=== PATIENT | female | born 1990 | race American Indian/Alaskan Native ===

== ENCOUNTER 2020-06-01 08:17 | Outpatient (CLI) | payer OTHER | END 2020-06-01 09:08 | disposition home or self-care (01) | LOC: NST 08:17 | PROVIDERS: ATTEND Obstetrics & Gynecology | DX: Z34.83 Encounter for supervision of other normal pregnancy, third trimester (principal) ==

== ENCOUNTER 2020-07-12 07:46 | Outpatient (CLI) | payer OTHER | END 2020-07-12 08:28 | disposition home or self-care (01) | LOC: NST 07:46 | PROVIDERS: ATTEND Obstetrics & Gynecology | DX: Z34.83 Encounter for supervision of other normal pregnancy, third trimester (principal) ==

== ENCOUNTER 2020-07-20 14:45 | Inpatient (IN) | payer OTHER ==
[~2020-07-20] VITALS: Ht 152.4 cm; Wt 58.5 kg
[2020-08-03] MEDS ORDERED: PRENATAL TABLE1 EAC1 PO (07:44)
== END 2020-08-05 16:23 | disposition home or self-care (01) | DRG 788 ==
LOC: LDR 08-03 06:27 → O/R 08-03 19:01 → SURG-SUITE 08-03 19:14
PROVIDERS: ADMIT Obstetrics & Gynecology; ATTEND Obstetrics & Gynecology
PROC: 10907ZC Drainage of Amniotic Fluid, Therapeutic from Products of Conception, Via Natural or Artificial Opening (ICD-10-PCS; 2020-08-03)
PROC: 3E033VJ Introduction of Other Hormone into Peripheral Vein, Percutaneous Approach (ICD-10-PCS; 2020-08-03)
PROC: 4A1HXFZ Monitoring of Products of Conception, Cardiac Rhythm, External Approach (ICD-10-PCS; 2020-08-03)
PROC: 10D00Z1 Extraction of Products of Conception, Low, Open Approach (ICD-10-PCS; principal; 2020-08-03 15:00)
DX: O61.0 Failed medical induction of labor (principal); Z3A.39 39 weeks gestation of pregnancy; Z37.0 Single live birth; Z20.822 Contact with and (suspected) exposure to COVID-19

== ENCOUNTER 2022-01-11 09:00 | Outpatient (CLI) | payer OTHER ==
[~2022-01-11 09:00] MED LIST: PRENATAL TABLE1 EAC1 PO
== END 2022-01-11 09:10 | disposition home or self-care (01) ==
LOC: NUCLEAR 09:00
PROVIDERS: ATTEND Internal Medicine
DX: I47.1 Supraventricular tachycardia (principal)

== ENCOUNTER 2022-05-16 | Outpatient (CLI) | payer OTHER | END 2022-05-16 00:15 | disposition home or self-care (01) | LOC: PPH VACUNA | PROVIDERS: ATTEND Emergency Medicine Pediatric Emergency Medicine | DX: Z23 Encounter for immunization (principal) ==

== ENCOUNTER 2022-06-23 14:40 | Outpatient (CLI) | payer OTHER | END 2022-06-23 16:48 | disposition home or self-care (01) | LOC: NST 14:40 | PROVIDERS: ATTEND Obstetrics & Gynecology Gynecology | DX: Z34.83 Encounter for supervision of other normal pregnancy, third trimester (principal) ==

== ENCOUNTER 2022-06-23 16:51 | Inpatient (IN) | payer OTHER ==
[~2022-06-23] VITALS: Ht 152.4 cm; Wt 57.2 kg
[2022-06-26] MEDS ORDERED: TOPROL XL25 M1 PO (07:33)
[2022-06-26] MEDS ORDERED: Procardia Xl 30MG TA PO (07:33)
== END 2022-06-26 08:46 | disposition home or self-care (01) | DRG 833 ==
LOC: LDR 16:51 → OB/GYN 06-25 10:39
PROVIDERS: ADMIT Obstetrics & Gynecology Gynecology; ATTEND Obstetrics & Gynecology Gynecology
PROC: 4A1HXCZ Monitoring of Products of Conception, Cardiac Rate, External Approach (ICD-10-PCS; principal; 2022-06-23)
DX: O60.03 Preterm labor without delivery, third trimester (principal); Z3A.33 33 weeks gestation of pregnancy; Z20.822 Contact with and (suspected) exposure to COVID-19

== ENCOUNTER 2022-07-01 10:40 | Outpatient (CLI) | payer OTHER ==
[~2022-07-01 10:40] MED LIST changes: +Procardia Xl 30MG TA PO; +TOPROL XL25 M1 PO
== END 2022-07-01 10:53 | disposition home or self-care (01) ==
LOC: OBS/DEL 10:40
PROVIDERS: ATTEND Obstetrics & Gynecology Gynecology
DX: O36.8130 Decreased fetal movements, third trimester, not applicable or unspecified (principal); Z3A.35 35 weeks gestation of pregnancy

== ENCOUNTER 2022-07-17 10:10 | Outpatient (CLI) | payer OTHER | END 2022-07-17 10:59 | disposition home or self-care (01) | LOC: NST 10:10 | PROVIDERS: ATTEND Obstetrics & Gynecology | DX: Z34.83 Encounter for supervision of other normal pregnancy, third trimester (principal) ==

== ENCOUNTER 2022-07-24 12:13 | Inpatient (IN) | payer OTHER ==
[~2022-07-24] VITALS: Ht 152.4 cm; Wt 2.7 kg
== END 2022-07-27 15:54 | disposition home or self-care (01) | DRG 788 ==
LOC: OB/GYN 07-25 07:17 → O/R 07-25 07:17 → OB/GYN 07-25 11:31
PROVIDERS: ADMIT Obstetrics & Gynecology; ATTEND Obstetrics & Gynecology
PROC: 4A1HXCZ Monitoring of Products of Conception, Cardiac Rate, External Approach (ICD-10-PCS; 2022-07-25)
PROC: 10D00Z1 Extraction of Products of Conception, Low, Open Approach (ICD-10-PCS; principal; 2022-07-25 13:45)
DX: O34.211 Maternal care for low transverse scar from previous cesarean delivery (principal); Z3A.38 38 weeks gestation of pregnancy; Z37.0 Single live birth; Z20.822 Contact with and (suspected) exposure to COVID-19